=== PATIENT | male | born 1960 ===

== ENCOUNTER 2016-12-29 14:43 | Emergency (ER) | payer OTHER ==
[2016-12-29 14:52] VITALS: BP 140/80; PULSE 80; RESP 18; TEMP 97.9; O2SAT 97
--- NOTE | 2016-12-29 15:59 | C.PDOC ---
History Of Present Illness 56 yr old male presents to the ER stating he has a mole to the right side of his face for 1 year. Patient states he also had similar moles years ago but was removed for possible cancerous lesion and patient is concerned it night be the same this time around. Patient also reports of a sinus infection and has been having intermittent nasal congestion. Patient denies fever, chills, nausea, vomiting, neck pain, weakness or numbness. Time Seen by Provider: 12/29/16 15:34 Chief Complaint (Nursing): Abnormal Skin Integrity History Per: Patient History/Exam Limitations: no limitations Onset/Duration Of Symptoms: Persistent (1 year) Past Medical History Reviewed: Historical Data, Nursing Documentation, Vital Signs Vital Signs: Last Vital Signs Temp 97.9 F 12/29/16 14:51 Pulse 80 12/29/16 14:51 Resp 18 12/29/16 14:51 BP 140/80 12/29/16 14:51 Pulse Ox 97 12/29/16 16:25 Surgical History: Tonsillectomy Family History: States: No Known Family Hx - Social History Hx Alcohol Use: No Hx Substance Use: No - Immunization History Hx Tetanus Toxoid Vaccination: No Hx Influenza Vaccination: No Hx Pneumococcal Vaccination: No Review Of Systems Except As Marked, All Systems Reviewed And Found Negative. Constitutional: Negative for: Fever, Chills ENT: Positive for: Nose Congestion Gastrointestinal: Negative for: Nausea, Vomiting Musculoskeletal: Negative for: Neck Pain Skin: Positive for: Other (Mole to the right side of face) Neurological: Negative for: Weakness, Numbness Physical Exam - Physical Exam Appears: Well, Non-toxic, No Acute Distress Skin: Warm, Dry, No Rash, Other ((+) 0.5cm circular, red, slightly raised to the right preauricular region, which is non-tender. No fluctuance or drainage. ) Head: Atraumatic, Normacephalic, Other (No sinus tenderness) Eye(s): bilateral: Normal Inspection, PERRL, EOMI Ear(s): Bilateral: Normal Oral Mucosa: Moist Throat: No Erythema, No Exudate Neck: Normal ROM, Supple Cardiovascular: Rhythm Regular Respiratory: Normal Breath Sounds Extremity: Normal ROM, No Swelling Neurological/Psych: Oriented x3, Normal Speech, Normal Motor Gait: Steady ED Course And Treatment O2 Sat by Pulse Oximetry: 97 Medical Decision Making Medical Decision Making: The lesion could be basal cell carcinoma and there is no signs of infection or abscess. Patient was instructed to follow up with the medical doctor/clinic for possible biopsy. Patient has no signs of sinusitis at this time will write RX for claritin. Disposition - Disposition Referrals: [facility] at [facility] [Outside] Disposition: HOME/ ROUTINE Disposition Time: 16:22 Condition: GOOD Additional Instructions: Follow up with the medical doctor within 1-2 days without fail. Return if worsened. Prescriptions: Loratadine [Claritin] 10 mg PO DAILY #10 tab Instructions: Skin Cancer Prevention (ED) - Clinical Impression Clinical Impression: Skin lesion, Sinus congestion - PA / ACUPRESSURIST / Resident Statement MD/DO has reviewed & agrees with the documentation as recorded. - Scribe Statement The provider has reviewed the documentation as recorded by the Scribe Keshia Ortiz All medical record entries made by the Chongibjade were at my direction and personally dictated by me. I have reviewed the chart and agree that the record accurately reflects my personal performance of the history, physical exam, medical decision making, and the department course for this patient. I have also personally directed, reviewed, and agree with the discharge instructions and disposition.
== END 2016-12-29 16:33 | disposition home or self-care (01) ==
LOC: C.ER 14:43
DX: L98.8 Other specified disorders of the skin and subcutaneous tissue (principal); R09.81 Nasal congestion

== ENCOUNTER → 2017-10-11 | Day surgery (SDC) | payer OTHER ==
[2017-10-01 10:54] VITALS: BMI 28.7
[~2017-10-11] MED LIST: Bupivacaine HCl 0.25% PF (10 ml) Inj ONE; Lidocaine/Epinephrine 1% 1:100000 10 ML IJ ONE; ceFAZolin IV 1 gm in Dextrose 0 GM/0 ML BAG IVPB ONE
[2017-10-11 11:24] VITALS: RESP 16; TEMP 97
--- NOTE | 2017-10-11 11:30 | PCM.SURG1 ---
Surgeon's Initial Post Op Note - Surgeon's Notes Surgeon: Nestor Disla MD Decorating Instructor: None Type of Anesthesia: Local Pre-Operative Diagnosis: Right sided face lesions. Temporal and Zygomatic area. Operative Findings: Right sided face lesions Temporal area 2x1 cm and Zygomatic area 1x1 cm. Post-Operative Diagnosis: Right sided face lesions. Temporal and Zygomatic area. Operation Performed: WLE of Right sided face lesion Temporal area. WLE of Right sided face lesion Zygomatic area Specimen/Specimens Removed: WLE of Right sided face lesions, temporal and zygomatic area Estimated Blood Loss: EBL {In ML}: 10 Blood Products Given: N/A Drains Used: No Drains Post-Op Condition: Good Date of Surgery/Procedure: 10/11/17 Time of Surgery/Procedure: 11:29
[2017-10-11 11:47] VITALS: BP 122/69; PULSE 63; O2SAT 100
--- NOTE | 2017-10-12 01:08 | OP ---
PROCEDURE DATE: 10/11/2017. PREOPERATIVE DIAGNOSIS: Right facial multiple lesion, possible malignant lesion. POSTOPERATIVE DIAGNOSES: 1. Right facial skin lesion temporal area, 2 X1 cm size. 2. Right facial skin lesion zygomatic area 1 x 1 cm size. PROCEDURES DONE: 1. Wide local excision of the right facial temporal area lesion 2 x 1 cm size. 2. Wide local excision Right facial skin lesion zygomatic area 1 x 1 cm size. SURGEON: Dr. Disla. FLAME CUTTING SUPERVISOR: None. ANESTHESIA: Local anesthesia. ESTIMATED BLOOD LOSS: Around 10 mL. DRAIN: None. PATHOLOGY: 1. The temporal area skin lesion. 2. Zygomatic area skin lesion was sent for the pathology. COMPLICATIONS: None. INTRAOPERATIVE FINDINGS: The patient had approximately 2 x 1 cm temporal area and 1 x 1 cm zygomatic area skin lesion on right side. DESCRIPTION OF PROCEDURE: On intraoperative steps, this is 57-year-old male who was diagnosed with skin lesion of right side of the face and the patient had history of malignant skin lesion in the past and patient was consented for the wide local excision. The patient was brought to the OR placed supine on the operating table. After prepping and draping the right side of the face and protecting the ear and the eye , local anesthesia was injected and first an elliptical incision was made surrounding the temporal area lesion approximately 2 x 1 cm size and the lesion was completely excised and then a 1 x 1 cm incision was made surrounding the right zygomatic area lesion and skin lesion was completely excised. The wound was closed in 2 layer, subcu with a 2-0 Vicryl, skin with 4-0 Monocryl and same thing for other lesion and dry sterile dressing was applied. The patient tolerated the procedure well. Count of the instrument and gauze was correct. There was no apparent complication. The patient was sent to the Postanesthesia Care Unit in stable condition. Albert Disla MD MTDBret
== END | disposition home or self-care (01) ==
LOC: C.SDS 06:31
PROVIDERS: ATTEND Surgery Surgical Critical Care
DX: L98.9 Disorder of the skin and subcutaneous tissue, unspecified (principal); L57.0 Actinic keratosis

== ENCOUNTER 2018-03-11 19:20 | Emergency (ER) | payer SELFPAY ==
[2018-03-11 19:20] VITALS: BMI 28.7
--- NOTE | 2018-03-11 19:31 | C.PDOC ---
History Of Present Illness 57-year-old patient, presents to the emergency department with complaints of intermittent chest pain since yesterday to left side. Patient states he took a baby aspirin yesterday with partial relief. Today, the discomfort returned, prompting visit. States the pain feels like his gastric acid, however, he also feels dull aching radiating down the arm. He denies any nausea/vomiting, fever chills, chest pain, shortness of breath or any other associated symptoms. No other complaints at this time. Time Seen by Provider: 03/11/18 19:30 History Per: Patient History/Exam Limitations: no limitations Onset/Duration Of Symptoms: Days Current Symptoms Are (Timing): Still Present Context: Other Severity: Moderate Pain Scale Rating Of: 4 Quality: Dull, Tightness, Pressure Associated Symptoms: denies: Nausea, Dyspnea Modifying Factors: None Alleviating Factors: None Recent travel outside of the [place]: No Additional History Per: Patient Past Medical History Reviewed: Historical Data, Nursing Documentation, Vital Signs Vital Signs: Last Vital Signs Temp 98.3 F 03/11/18 19:31 Pulse 59 L 03/11/18 23:10 Resp 16 03/11/18 23:10 BP 129/70 03/11/18 23:10 Pulse Ox 97 03/11/18 23:10 - Medical History PMH: Surgical History: Tonsillectomy Family History: States: No Known Family Hx - Social History Hx Alcohol Use: No - Immunization History Hx Tetanus Toxoid Vaccination: No Hx Influenza Vaccination: No Hx Pneumococcal Vaccination: No Review Of Systems Constitutional: Negative for: Fever, Chills ENT: Negative for: Throat Pain Cardiovascular: Positive for: Chest Pain. Negative for: Palpitations, Orthopnea , Edema Respiratory: Negative for: Shortness of Breath Gastrointestinal: Negative for: Nausea, Vomiting Genitourinary: Negative for: Dysuria Musculoskeletal: Negative for: Back Pain Skin: Negative for: Rash Neurological: Negative for: Weakness, Numbness Psych: Negative for: Anxiety Physical Exam - Physical Exam Appears: Non-toxic, No Acute Distress Skin: Normal Color, Warm, Dry, No Rash Head: Atraumatic, Normacephalic Eye(s): bilateral: Normal Inspection, PERRL, EOMI Nose: Normal Oral Mucosa: Moist Lips: Normal Appearing Neck: Normal ROM Chest: Symmetrical, Tenderness (Mildly tender to palpation, anterior chest wall) Cardiovascular: Rhythm Regular, No Murmur Respiratory: Normal Breath Sounds, No Accessory Muscle Use Gastrointestinal/Abdominal: Soft, No Tenderness Extremity: Normal ROM, No Pedal Edema, No Deformity, No Swelling Extremity: Bilateral: Atraumatic Pulses: Left Dorsalis Pedis: Normal, Right Dorsalis Pedis: Normal Neurological/Psych: Oriented x3, Normal Speech Gait: Steady ED Course And Treatment - Laboratory Results Result Diagrams: 03/11/18 20:19 03/11/18 20:19 ECG: Interpreted By Me, Viewed By Me ECG Rhythm: Sinus Rhythm (91), Nonspecific Changes (lad) O2 Sat by Pulse Oximetry: 99 (RA) Pulse Ox Interpretation: Normal - Radiology CXR: Interpreted by Me, Viewed By Me CXR Interpretation: Yes: Other (unchanged from 10/08/17). No: Infiltrates, Fracture, Pnemothorax Disposition Discussed With DrLarry: Jeffrey Cunha Comment: accepted the pt on his service and took over the care at 11:15PM Counseled Patient/Family Regarding: Studies Performed, Diagnosis - Disposition Disposition: HOSPITALIZED Disposition Time: 19:31 Condition: FAIR - POA Present On Arrival: Poor Glycemic Control - Clinical Impression Clinical Impression: Chest pain - Scribe Statement The provider has reviewed the documentation as recorded by the Scribe (Edgar Liu) All medical record entries made by the Scribe were at my direction and personally dictated by me. I have reviewed the chart and agree that the record accurately reflects my personal performance of the history, physical exam, medical decision making, and the department course for this patient. I have also personally directed, reviewed, and agree with the discharge instructions and disposition. Decision To Admit - Pt Status Changed To: Hospital Disposition Of: Inpatient - Admit Certification Admit to Inpatient:: After my assessment, the patient will require hospitalization for at least two midnights. This is because of the severity of symptoms shown, intensity of services needed, and/or the medical risk in this patient being treated as an outpatient. - InPatient: Physician Admission Certification: I certify that this patient requires 2 or more midnights of care for the following reason:: After my assessment, the patient will require hospitalization for at least two midnights. This is because of the severity of symptoms shown, intensity of services needed, and/or the medical risk in this patient being treated as an outpatient. - . Bed Request Type: Telemetry Admitting Physician: Jeffrey Cunha Patient Diagnosis: Chest pain
[2018-03-11 19:35] VITALS: TEMP 98.3
[2018-03-11 20:28] LABS: BASO # 0.1 K/uL (0.0-0.2); BASO % 0.9 % (0.0-2.0); EOS # 0.1 K/uL (0.0-0.7); EOS % 1.7 % (0.0-4.0); LYMPH # 2.7 K/uL (1.0-4.3); MEAN CELL VOLUME 91.2 fL (80.0-94.0); MEAN PLATELET VOLUME 8.5 fL (7.2-11.7); MONO # 0.3 K/uL (0.0-0.8); NEUT # 4.2 K/uL (1.8-7.0); NEUT % 57.4 % (50.0-75.0); NRBC % 0.3 % (0.0-2.0); RBC 4.5 Mil/uL (4.40-5.90); WHITE BLOOD COUNT 7.4 K/uL (4.8-10.8)
[2018-03-11 20:43] LABS: ALB/GLOB RATIO 1.3 (1.0-2.1); ALBUMIN 4.2 g/dL (3.5-5.0); ALT/SGPT 34 U/L (21-72); AST/SGOT 24 U/L (17-59); BLOOD UREA NITROGEN 8 mg/dL (9-20); CALCIUM 8.8 mg/dl (8.6-10.4); GFR AFRICAN-AMERICAN > 60; GFR NON-AFRICAN AMERICAN > 60
[2018-03-11 20:52] LABS: CK-MB 0.48 ng/mL (0.0-3.38)
[2018-03-11] MEDS ORDERED: Aspirin 325 mg EC Tablets PO STA (21:26)
[2018-03-11 22:06] LABS: SQUAMOUS EPITHIAL < 1 /hpf (0-5); URINE BILIRUBIN NEGATIVE (NEGATIVE); URINE BLOOD NEGATIVE (NEGATIVE); URINE CLARITY Clear (Clear); URINE COLOR Yellow (YELLOW); URINE GLUCOSE (UA) NORMAL (Normal); URINE LEUKOCYTE ESTERASE NEG Leu/uL (Negative); URINE PROTEIN NEGATIVE (NEGATIVE); URINE UROBILINOGEN NORMAL mg/dL (0.2-1.0)
[2018-03-11 22:25] LABS: INR 1.1; PROTHROMBIN TIME 12.5 SECONDS (9.7-12.2)
[2018-03-11] MEDS ORDERED: MethylPREDNISolone 40 mg Vial IVP STA (23:42)
[2018-03-11] MEDS ORDERED: DiphenhydrAMINE 50 mg/ml Inj IVP STA (23:42)
[2018-03-11] MEDS ORDERED: DiphenhydrAMINE 50 mg/ml Inj ONE (23:47)
[2018-03-12 01:34] VITALS: BP 124/71
--- NOTE | 2018-03-12 01:49 | CP.PCM.CON ---
<Kirsten Espinoza - Last Filed: 03/12/18 01:44> History of Present Illness - History of Present Illness History of Present Illness: PGY-1 Medicine Consult Note for Dr. Cunha Mr. Mcgovern is a 57 year old male with no significant PMH presenting to the [facility] ED for chest pain x1 day. It started at 5PM and made it difficult for him to take deep breaths. Taking an aspirin, Motrin, or Mylanta did not alleviate the sensation, so he came in to the ED. He is not currently experiencing any chest pain, as it comes in waves. Admits to hoarse voice, but assigns that to his history of sinus issues. Denies headache, fever, chills, weakness, fatigue, palpitations, cough, nausea, vomiting, leg pain, swelling, rash, numbness, tingling. Review of Systems - Constitutional Constitutional: absent: Chills, Fever, Headache, Lethargy, Weakness - EENT Eyes: absent: Blurred Vision Nose/Mouth/Throat: absent: Nasal Obstruction, Post Nasal Drip - Cardiovascular Cardiovascular: Chest Pain, Dyspnea on Exertion. absent: Diaphoresis, Dyspnea, Pain Radiating to Arm/Neck/Jaw, Lightheadedness, Palpitations - Respiratory Respiratory: absent: Cough, Dyspnea, Wheezing - Gastrointestinal Gastrointestinal: Dyspepsia. absent: Abdominal Pain, Constipation, Diarrhea - Neurological Neurological: absent: Numbness, Memory Loss, Syncope, Tingling - Endocrine Endocrine: absent: Flushing, Heat Intolorance Past Patient History - Infectious Disease Hx of Infectious Diseases: None - Past Medical History & Family History Past Medical History?: Yes - Past Social History Smoking Status: Never Smoked Alcohol: None Drugs: Denies - CARDIAC Hx Cardiac Disorders: Yes Other/Comment: VARICOSE VEINS BOTH LEGS - PULMONARY Hx Respiratory Disorders: No - NEUROLOGICAL Hx Neurological Disorder: No - HEENT Hx HEENT Problems: Yes Other/Comment: USES GLASSES - ENDOCRINE/METABOLIC Hx Endocrine Disorders: No - HEMATOLOGICAL/ONCOLOGICAL Hx Blood Disorders: Yes Hx Shingles: Yes - INTEGUMENTARY Hx Dermatological Problems: Yes Other/Comment: PER PT SKIN CANCER - MUSCULOSKELETAL/RHEUMATOLOGICAL Hx Musculoskeletal Disorders: No - GASTROINTESTINAL Hx Gastrointestinal Disorders: Yes Hx Gastroesophageal Reflux: Yes - GENITOURINARY/GYNECOLOGICAL Hx Genitourinary Disorders: No - SURGICAL HISTORY Hx Tonsillectomy: Yes - ANESTHESIA Hx Anesthesia: Yes Hx Anesthesia Reactions: No Hx Malignant Hyperthermia: No Meds Allergies/Adverse Reactions: Allergies Allergy/AdvReac Type Severity Reaction Status Date / Time No Known Allergies Allergy Verified 03/11/18 19:35 Physical Exam - Constitutional Appears: Non-toxic, No Acute Distress - Head Exam Head Exam: ATRAUMATIC, NORMOCEPHALIC - Eye Exam Eye Exam: EOMI, Normal appearance - ENT Exam ENT Exam: Mucous Membranes Moist Additional comments: posterior pharynx slightly erythematous, no tonsillar exudates or swelling. nontender to palpation, no lymphadenopathy. - Respiratory Exam Respiratory Exam: Clear to Auscultation Bilateral, NORMAL BREATHING PATTERN. absent: Accessory Muscle Use, Rales, Rhonchi, Wheezes - Cardiovascular Exam Cardiovascular Exam: REGULAR RHYTHM, +S1, +S2. absent: Bradycardia, Tachycardia , Gallop, Rubs, Systolic Murmur - GI/Abdominal Exam GI & Abdominal Exam: Normal Bowel Sounds, Soft. absent: Firm, Guarding, Tenderness - Extremities Exam Extremities exam: Positive for: full ROM, normal capillary refill, normal inspection, pedal pulses present Additional comments: IV in R AC peripheral pulses present (radial, PT) - Neurological Exam Neurological exam: Alert, CN II-XII Intact, Oriented x3, Reflexes Normal - Psychiatric Exam Psychiatric exam: Normal Affect, Normal Mood - Skin Skin Exam: Dry, Intact, Normal Color, Warm Results - Vital Signs Recent Vital Signs: Last Vital Signs Temp 98.3 F 03/11/18 19:31 Pulse 50 L 03/12/18 01:34 Resp 15 03/12/18 01:34 BP 124/71 03/12/18 01:34 Pulse Ox 97 03/12/18 01:34 - Labs Result Diagrams: 03/11/18 20:19 03/11/18 20:19 Labs: Laboratory Results - last 24 hr 03/11/18 03/11/18 03/11/18 20:19 20:19 21:41 WBC 7.4 RBC 4.50 Hgb 14.0 Hct 41.0 MCV 91.2 D MCH 31.0 MCHC 34.0 RDW 13.0 Plt Count 247 MPV 8.5 Neut % (Auto) 57.4 Lymph % (Auto) 36.0 Lawrence % (Auto) 4.0 Eos % (Auto) 1.7 Baso % (Auto) 0.9 Neut # (Auto) 4.2 Lymph # (Auto) 2.7 Lawrence # (Auto) 0.3 Eos # (Auto) 0.1 Baso # (Auto) 0.1 PT 12.5 H INR 1.1 APTT 32 Sodium 143 Potassium 3.6 Chloride 104 Carbon Dioxide 27 Anion Gap 16 BUN 8 L Creatinine 0.8 Est GFR ( Amer) > 60 Est GFR (Non-Af Amer) > 60 Random Glucose 117 H Calcium 8.8 Total Bilirubin 0.9 AST 24 ALT 34 Alkaline Phosphatase 92 Total Creatine Kinase 65 CK-MB (Mass) 0.48 Troponin I < 0.0120 Total Protein 7.4 Albumin 4.2 Globulin 3.2 Albumin/Globulin Ratio 1.3 Lipase Urine Color Urine Clarity Urine pH Ur Specific [place] Urine Protein Urine Glucose (UA) Urine Ketones Urine Blood Urine Nitrate Urine Bilirubin Urine Urobilinogen Ur Leukocyte Esterase Urine RBC (Auto) Ur Squamous Epith Cells 03/11/18 03/11/18 21:41 21:51 WBC RBC Hgb Hct MCV MCH MCHC RDW Plt Count MPV Neut % (Auto) Lymph % (Auto) Lawrence % (Auto) Eos % (Auto) Baso % (Auto) Neut # (Auto) Lymph # (Auto) Lawrence # (Auto) Eos # (Auto) Baso # (Auto) PT INR APTT Sodium Potassium Chloride Carbon Dioxide Anion Gap BUN Creatinine Est GFR ( Amer) Est GFR (Non-Af Amer) Random Glucose Calcium Total Bilirubin AST ALT Alkaline Phosphatase Total Creatine Kinase CK-MB (Mass) Troponin I Total Protein Albumin Globulin Albumin/Globulin Ratio Lipase 74 Urine Color Yellow Urine Clarity Clear Urine pH 7.0 Ur Specific [place] 1.009 Urine Protein Negative Urine Glucose (UA) Normal Urine Ketones Negative Urine Blood Negative Urine Nitrate Negative Urine Bilirubin Negative Urine Urobilinogen Normal Ur Leukocyte Esterase Neg Urine RBC (Auto) < 1 Ur Squamous Epith Cells < 1 Assessment & Plan - Assessment and Plan (Free Text) Plan: 1) Chest Pain Patient currently is not complaining of chest pain Trop I @ 20:19 <0.0120 EKG: normal sinus rhythm, left axis deviation, otherwise unremarkable Physical exam finding benign He appears non-toxic and does not need imminent hospitalization. Will monitor the next SAVI panel and EKG. If normal, stable for discharge. - Date & Time Date: 03/12/18 Time: 01:53 <Jeffrey Cunha P - Last Filed: 03/12/18 08:07> Results - Vital Signs Recent Vital Signs: Last Vital Signs Temp 98.3 F 03/11/18 19:31 Pulse 65 03/12/18 06:19 Resp 12 03/12/18 06:19 BP 124/71 03/12/18 01:34 Pulse Ox 100 03/12/18 06:19 - Labs Result Diagrams: 03/11/18 20:19 03/11/18 20:19 Labs: Laboratory Results - last 24 hr 03/11/18 03/11/18 03/11/18 20:19 20:19 21:41 WBC 7.4 RBC 4.50 Hgb 14.0 Hct 41.0 MCV 91.2 D MCH 31.0 MCHC 34.0 RDW 13.0 Plt Count 247 MPV 8.5 Neut % (Auto) 57.4 Lymph % (Auto) 36.0 Lawrence % (Auto) 4.0 Eos % (Auto) 1.7 Baso % (Auto) 0.9 Neut # (Auto) 4.2 Lymph # (Auto) 2.7 Lawrence # (Auto) 0.3 Eos # (Auto) 0.1 Baso # (Auto) 0.1 PT 12.5 H INR 1.1 APTT 32 Sodium 143 Potassium 3.6 Chloride 104 Carbon Dioxide 27 Anion Gap 16 BUN 8 L Creatinine 0.8 Est GFR ( Amer) > 60 Est GFR (Non-Af Amer) > 60 Random Glucose 117 H Calcium 8.8 Total Bilirubin 0.9 AST 24 ALT 34 Alkaline Phosphatase 92 Total Creatine Kinase 65 CK-MB (Mass) 0.48 Troponin I < 0.0120 Total Protein 7.4 Albumin 4.2 Globulin 3.2 Albumin/Globulin Ratio 1.3 Lipase Urine Color Urine Clarity Urine pH Ur Specific [place] Urine Protein Urine Glucose (UA) Urine Ketones Urine Blood Urine Nitrate Urine Bilirubin Urine Urobilinogen Ur Leukocyte Esterase Urine RBC (Auto) Ur Squamous Epith Cells 03/11/18 03/11/18 03/12/18 21:41 21:51 02:26 WBC RBC Hgb Hct MCV MCH MCHC RDW Plt Count MPV Neut % (Auto) Lymph % (Auto) Lawrence % (Auto) Eos % (Auto) Baso % (Auto) Neut # (Auto) Lymph # (Auto) Lawrence # (Auto) Eos # (Auto) Baso # (Auto) PT INR APTT Sodium Potassium Chloride Carbon Dioxide Anion Gap BUN Creatinine Est GFR ( Amer) Est GFR (Non-Af Amer) Random Glucose Calcium Total Bilirubin AST ALT Alkaline Phosphatase Total Creatine Kinase CK-MB (Mass) Troponin I < 0.0120 Total Protein Albumin Globulin Albumin/Globulin Ratio Lipase 74 Urine Color Yellow Urine Clarity Clear Urine pH 7.0 Ur Specific [place] 1.009 Urine Protein Negative Urine Glucose (UA) Normal Urine Ketones Negative Urine Blood Negative Urine Nitrate Negative Urine Bilirubin Negative Urine Urobilinogen Normal Ur Leukocyte Esterase Neg Urine RBC (Auto) < 1 Ur Squamous Epith Cells < 1 03/12/18 05:38 WBC RBC Hgb Hct MCV MCH MCHC RDW Plt Count MPV Neut % (Auto) Lymph % (Auto) [place] % (Auto) Eos % (Auto) Baso % (Auto) Neut # (Auto) Lymph # (Auto) Lawrence # (Auto) Eos # (Auto) Baso # (Auto) PT INR APTT Sodium Potassium Chloride Carbon Dioxide Anion Gap BUN Creatinine Est GFR ( Amer) Est GFR (Non-Af Amer) Random Glucose Calcium Total Bilirubin AST ALT Alkaline Phosphatase Total Creatine Kinase CK-MB (Mass) Troponin I < 0.0120 Total Protein Albumin Globulin Albumin/Globulin Ratio Lipase Urine Color Urine Clarity Urine pH Ur Specific [place] Urine Protein Urine Glucose (UA) Urine Ketones Urine Blood Urine Nitrate Urine Bilirubin Urine Urobilinogen Ur Leukocyte Esterase Urine RBC (Auto) Ur Squamous Epith Cells Attending/Attestation - Attestation I have personally seen and examined this patient.: Yes I have fully participated in the care of the patient.: Yes I have reviewed all pertinent clinical information: Yes Notes (Text): Atypical cp, tender spon in right lower ribs for more than 1.5 days, without any ekg changes or cardiac marker, no associated sob or distress, pt seen in ER , will if troponin repeated if negative could be discharge form ER.
[2018-03-12 03:36] VITALS: O2SAT 100
[2018-03-12 06:21] VITALS: PULSE 65; RESP 12
--- NOTE | 2018-03-12 11:25 | RAD ---
Date of service: 03/11/2018 PROCEDURE: CHEST RADIOGRAPH, 1 VIEW HISTORY: chest pain COMPARISON: Comparison is made with 10/08/2017 FINDINGS: LUNGS: No evidence of new infiltrate or consolidation in the lungs. PLEURA: No pneumothorax or pleural fluid seen. CARDIOVASCULAR: Normal. OSSEOUS STRUCTURES: No significant abnormalities. VISUALIZED UPPER ABDOMEN: Normal. OTHER FINDINGS: None. IMPRESSION: No active disease.
--- NOTE | 2018-03-15 15:24 | CARD ---
APPROVED REPORT Date of service: 03/11/2018 EKG Measurement Heart [id number] <Conclusion> Normal sinus rhythm Left axis deviation Abnormal ECG
== END 2018-03-12 06:36 | disposition home or self-care (01) ==
LOC: C.ER 19:20 → C.9E 23:14 → UNDOADMIN 23:14
DX: R07.9 Chest pain, unspecified (principal)
CPT/HCPCS: 36415; 71045; 80053; 81001; 83690; 84484; 85025; 85610; 85730; 93005; 96374; 96375; 99284; C9113; J2270